=== PATIENT | female | born 1995 ===

== ENCOUNTER 2016-12-20 14:17 | Emergency (ER) | payer BC ==
[2016-12-20 15:18] VITALS: BP 102/62
--- NOTE | 2016-12-20 15:30 | UC ---
Throat Pain/Nasal Issa HPI - HPI Summary HPI Summary: onset 4 days ago of mild sore throat, with progression today to fever and increased purulent nasal discharge. Cough secondary to drainage, but not severe. No shortness of breath or dyspnea. - History of Current Complaint Chief Complaint: UCRespiratory Stated Complaint: SINUS COMPLAINT Time Seen by Provider: 12/20/16 15:23 Hx Obtained From: Patient Hx Last Menstrual Period: 11/23/16 ?: No Onset/Duration: Gradual Onset, Lasting Days - 4 Severity: Moderate Cough: Nonproductive Associated Signs & Symptoms: Positive: Hoarseness, Sinus Discomfort, Nasal Discharge - Epiglottits Risk Factors Epiglottis Risk Factors: Negative - Allergies/Home Medications Allergies/Adverse Reactions: Allergies Allergy/AdvReac Type Severity Reaction Status Date / Time No Known Allergies Allergy Verified 12/20/16 15:17 Home Medications: Home Medications Norgestimate-Eth Estradiol(NF) [Ortho Tri-Cyclen (NF)] 1 tab PO QPM 12/20/16 [ History Confirmed 12/20/16] [id number] [Nyquil Severe Cold/Flu 5-6.25-10-325 mg/15Ml] 1 liq PO QPM PRN 12/20/16 [History Confirmed 12/20/16] PMH/Surg Hx/FS Hx/Imm Hx Previously Healthy: Yes - recurrent sinusitis - Surgical History Surgical History: Yes Surgery Procedure, Year, and Place: appy - Family History Known Family History: Positive: Other - parents alive and healthy, no respiratory illnesses, dad gets sinusiti - Social History Alcohol Use: Rare Substance Use Type: None Smoking Status (MU): Never Smoked Tobacco Review of Systems Constitutional: Negative Skin: Negative Eyes: Negative ENT: Sore Throat, Ear Ache Respiratory: Cough Cardiovascular: Negative Gastrointestinal: Negative Genitourinary: Negative Motor: Negative Neurovascular: Negative Musculoskeletal: Negative Neurological: Negative Psychological: Negative All Other Systems Reviewed And Are Negative: Yes Physical Exam Triage Information Reviewed: Yes Appearance: Ill-Appearing - looks fatigued and unwell Vital Signs: Initial Vital Signs Temp 100.1 F 12/20/16 15:12 Pulse 87 12/20/16 15:12 Resp 18 12/20/16 15:12 BP 102/62 12/20/16 15:12 Pulse Ox 100 01/28/17 15:12 Eye Exam: Normal Eyes: Positive: Conjunctiva Clear ENT: Positive: Pharynx normal, TMs normal Dental Exam: Normal Neck: Positive: Supple, Nontender, No Lymphadenopathy Respiratory: Positive: Lungs clear, Normal breath sounds Cardiovascular: Positive: RRR, No Murmur Musculoskeletal Exam: Normal Neurological Exam: Normal Psychological Exam: Normal Skin Exam: Normal Throat Pain/Nasal Course/Dx - Course Course Of Treatment: augmentin for sinusitis; steroid spray to improve sinus drainage. - Differential Dx/Diagnosis Differential Diagnosis/HQI/PQRI: Laryngitis, Pharyngitis, Sinusitis, Tonsillitis Provider Diagnoses: bilateral maxillary sinusitis. Discharge - Discharge Plan Condition: Stable Disposition: HOME Prescriptions: Amoxicillin/Clavulanate TAB* [Augmentin TAB 875*] 875 mg PO BID #20 tab Mometasone NASAL (NF) [Nasonex (NF)] 2 spray .SEE ORDER DAILY #1 nasal.spr Patient Education Materials: Sinusitis (ED) Additional Instructions: Take full course of antibiotics to treat sinus infection, and use steroid nasal spray to promote sinus drainage. You can continue use of ibuprofen for control of pain and fever.
== END 2016-12-20 15:49 | disposition home or self-care (01) ==
LOC: UCCORT 14:17
DX: J32.0 Chronic maxillary sinusitis (principal)
CPT/HCPCS: 99202; G0463